=== PATIENT | female | born 1980 | race American Indian/Alaskan Native ===

== ENCOUNTER 2017-01-11 11:45 | Day surgery (SDC) | payer MEDICAID ==
--- NOTE | 2017-01-09 16:51 | Short Stay Summary ---
Short Stay Documentation Date of service: 01/09/17 Narrative H&P: 36 yo A6 here for repeat BTL. A previous Filshie clip BTL has failed twice with resulting - History Principal diagnosis: sterilization Past Medical History: No medical history Past Surgical History: Other (laparoscopic BTL, D&C for EAB, ORIF R ankle fx) Social history: no significant social history - Allergies and Medications Current Medications: Allergies metronidazole [From Flagyl] Adverse Reaction (Verified 07/05/13 09:51) Nausea Metronidazole HCl [From Flagyl] Adverse Reaction (Verified 07/05/13 09:51) Nausea Home Medications Medication Instructions Recorded Confirmed Last Taken Type No Known Home Medications [No 07/05/13 07/05/13 Unknown History Reported Home Medications] Active Medications Cefazolin Sodium (Ancef/Sterile Water 2 Gm/20 Ml) 2 gm in 20 mls @ 80 mls/hr IV PREOP NR PRN Reason: Protocol Stop: 01/09/17 23:59 Lactated Ringer's (Lactated Ringers) 1,000 mls @ 125 mls/hr IV DIRECT PB - Physical exam General appearance: no acute distress HEENT: Atraumatic Lungs: Clear to auscultation Breasts: deferred Heart: Regular rate Gastrointestinal: normal, no tenderness, no guarding Female Genitourinary: normal Extremities: pulses intact, No edema Neurological: Normal speech, Cranial nerves 3-12 NL - Brief post op/procedure progress note Date of procedure: 01/11/17 Pre-op diagnosis: elective sterilization and previous failed tubal ligation Post-op diagnosis: other (same, plus apparent device failure) Procedure: Laparoscopic bilateral tubal fulguration (see detailed op note) Anesthesia: GETA Findings: Normal intra-abdominal contents. A brief inspection of the upper and lower abdomen was conducted in a search for a Filshie clip and was completely within normal limits. The pelvis revealed normal uterus and normal ovaries with discontinuous left fallopian tube and attached Filshie clip and apparently discontinuous right fallopian tube, but no clip was found Surgeon: BRIGITTE SAM Estimated blood loss: minimal Pathology: none Condition: stable - Hospital course Hospital course: Patient had a normal recovery in the PACU and was discharged home in good condition after meeting criteria - Disposition Condition at discharge: Good Disposition: DC-01 TO HOME OR SELFCARE - Discharge Diagnoses (1) Encounter for sterilization Status: Acute Short Stay Discharge Plan Activity: no driving until cleared by PCP (no driving for 24 hours, pelvic rest for 5 days) Weight Bearing Status: Full Weight Bearing Diet: regular Wound: keep clean and dry Special Instructions: no heavy lifting
[~2017-01-11 11:45] MED LIST: ANCEF/STERILE WATER 2 GM/20 ML 2 GM/20 ML SYRINGE IV NR; LACTATED RINGERS 1,000 ML IV SCH
[2017-01-11] MEDS ORDERED: NACL BACTERIOSTATIC INFILTRATI ONE (12:28)
[2017-01-11] MEDS ORDERED: ANCEF/STERILE WATER 2 GM/20 ML 2 GM/20 ML SYRINGE IV NR (12:30)
[2017-01-11] MEDS ORDERED: ZOFRAN IV PRN ×2 (12:47→16:00)
[2017-01-11] MEDS ORDERED: SUBLIMAZE ONE (12:50)
[2017-01-11] MEDS ORDERED: DIPRIVAN 10 MG/ML IV ONE (12:50)
[2017-01-11] MEDS ORDERED: XYLOCAINE MPF 2% ONE (12:52)
[2017-01-11 12:55] LABS: Hematocrit 39.1 % (30.3-42.9); Hemoglobin 12.9 gm/dl (10.1-14.3); Mean Corpuscular HGB Conc 33 % (30-34); Mean Corpuscular Hemoglobin 28 pg (28-32); Mean Corpuscular Volume 84 fl (79-97); Platelet Count 163 K/mm3 (140-440); Red Blood Count 4.68 M/mm3 (3.65-5.03); Red Cell Distribution Width 14.9 % (13.2-15.2); White Blood Count 6.3 K/mm3 (4.5-11.0)
[2017-01-11] MEDS ORDERED: VERSED IV NR (13:00)
[2017-01-11] MEDS ORDERED: REGLAN PO NR (13:00)
[2017-01-11] MEDS ORDERED: PEPCID PO NR (13:00)
--- NOTE | 2017-01-11 13:05 | Anesthesia Day of Surgery ---
Anesthesia Day of Surgery - Day of Surgery Patient Examined: Yes Patient H&P Reviewed: Yes Patient is NPO: Yes
--- NOTE | 2017-01-11 13:06 | Anesthesia Consultation ---
Anesthesia Consult and Med Hx Date of service: 01/11/17 - Airway Anesthetic Teeth Evaluation: Good ROM Head & Neck: Adequate Mental/Hyoid Distance: Adequate Mallampati Class: Class I Intubation Access Assessment: Good - Pulmonary Exam CTA: Yes - Cardiac Exam Cardiac Exam: RRR - Pre-Operative Health Status ASA Pre-Surgery Classification: ASA1 Proposed Anesthetic Plan: General - Pulmonary Hx Smoking: No - Cardiovascular System Hx Hypertension: No - Central Nervous System Hx Psychiatric Problems: No - Endocrine Hx Non-Insulin Dependent Diabetes: No - Hematic Hx Anemia: No - Other Systems Hx Alcohol Use: Yes (occas) Hx Cancer: No Hx Obesity: No
[2017-01-11] MEDS ORDERED: MARCAINE-EPI/PF 0.5%-1:200,000 INFILTRATI ONE ×2 (13:18→14:45)
[2017-01-11] MEDS ORDERED: ROBINUL ONE (14:05)
[2017-01-11] MEDS ORDERED: DECADRON ONE (14:05)
[2017-01-11] MEDS ORDERED: NEOSTIGMINE ONE (14:05)
[2017-01-11] MEDS ORDERED: ZOFRAN ONE ×2 (14:05→15:12)
[2017-01-11] MEDS ORDERED: ZEMURON IV ONE (14:42)
[2017-01-11] MEDS ORDERED: QUELICIN ONE (14:42)
[2017-01-11] MEDS ORDERED: TORADOL ONE (14:42)
[2017-01-11] MEDS ORDERED: NACL 0.9% IR ONE (14:45)
--- NOTE | 2017-01-11 15:01 | Operative Report ---
Operative Report Operative Report: Date of procedure: 01/11/2017 Pre-operative diagnosis: Elective sterilization, previous failed tubal ligation with Filshie clips Post-operative diagnosis: Same with probable device failure on the patient's right Procedure name(s): Laparoscopic bilateral tubal fulguration Surgeon: Lillian Campos M.D. Manufacturing Laborer: JO ANN Anesthesia: Gen. endotracheal Findings: Normal intra-abdominal contents. A brief inspection of the upper and lower abdomen was conducted in a search for a Filshie clip and was completely within normal limits. The pelvis revealed normal uterus and normal ovaries with discontinuous left fallopian tube and attached Filshie clip and apparently discontinuous right fallopian tube, but no clip was found EBL: Less than 10 mL, patient was on menstrual period Procedure in detail: Patient was taken to the operating room and placed in the supine position. After adequate general endotracheal anesthesia was obtained she was placed in the dorsolithotomy position in Donte stirrups and was prepped and draped in the usual fashion for pelvic procedure laparoscopically. Surgical timeout was taken in the usual fashion. After I double gloved, I placed a Mckeon catheter in a sterile fashion, performed an examination under anesthesia which revealed a normal-size retro-flexed uterus and no adnexal masses. The cervix was then exposed with retractors. A single-tooth tenaculum was attached to the anterior lip of the cervix. There was no dilation required of the cervix and a HUMI manipulator was placed in the cervix. The balloon was blown up with 15 mL of air. I removed the outer layer of gloves and attention was turned to the abdomen. An intraumbilical incision was made in the inferior aspect through the old scar in the varies needle was passed through this. The abdomen was easily insufflated with about 4 L of carbon dioxide. The varies needle was removed and 5 mm port was placed through this incision. Inspection revealed intra- abdominal placement and the CO2 and was attached to the trocar. A second port was placed in the midline suprapubically through the old scar. Using a blunt probe, inspection of the abdomen revealed findings as noted above. The blunt probe was then changed out for the Kleppinger bipolar forceps and both fallopian tubes were ligated were fulgurated in 3 separate locations on each fallopian tube stasis was adequate. Upper abdomen is inspected as noted above. Procedure was then terminated and the instruments were removed and the carbon dioxide was allowed to escape from the abdomen. Incisions were closed with an inverted subcuticular suture of 0 Vicryl, covered with Band-Aids. The catheter and the HUMI manipulator were both removed and the patient was awakened and discharged to the PACU in good condition.
[2017-01-11] MEDS: DILAUDID IV PRN ×3 (15:15→15:38)
--- NOTE | 2017-01-11 16:40 | Post Anesthesia Evaluation ---
- Post Anesthesia Evaluation Patient Participated: Yes Airway Patent: Yes Stable Respiratory Function: Yes Nausea/Vomiting: No Temp > 96.8F: Yes Pain Manageable: Yes Adequeate Hydration: Yes Anesthesia Complications: No
[2017-01-11 17:17] VITALS: BP 144/88
== END 2017-01-11 17:10 | disposition home or self-care (01) ==
LOC: OR 11:45
PROVIDERS: ATTEND Obstetrics & Gynecology
DX: Z30.2 Encounter for sterilization (principal); Z88.1 Allergy status to other antibiotic agents; Z98.890 Other specified postprocedural states; Z72.89 Other problems related to lifestyle
CPT/HCPCS: 36415; 58670; 81025; 85027; 86850; 86900; 86901; J0330; J0690; J1100; J1170; J1885; J2250; J2405; J2704; J2710; J3010; J7120